=== PATIENT | female | born 1965 | race Caucasian/White ===

== ENCOUNTER 2019-10-27 07:53 | Outpatient (CLI) | payer OTHER, SELFPAY ==
--- NOTE | 2019-10-27 07:59 | ECG_ITS ---
Measurements Intervals [place] Rate: 69 P: 55 MI: 196 QRS: -30 QRSD: 95 T: 0 QT: 404 QTc: 436 Interpretive Statements SINUS RHYTHM DELAYED PRECORDIAL R/S TRANSITION BORDERLINE T WAVE ABNORMALITY- INFERIOR LEADS BORDERLINE ECG Electronically Signed On 10-27-2019 8:23:47 [employer] by Erickson Mcfadden D.O.
[2019-10-27 08:41] LABS: Blood Urea Nitrogen 9 mg/dL (7-17); Calcium 8.8 mg/dL (8.4-10.2); Carbon Dioxide 30 mmol/L (22-30); Chloride 99 mmol/L (98-107); Estimated Glomerular Filt Rate > 60; Glucose 107 mg/dL (65-105); Potassium 4.3 mmol/L (3.4-5.0); Sodium 141 mmol/L (137-145)
== END 2019-10-27 07:54 | disposition home or self-care (01) ==
PROVIDERS: Anesthesiology; PCP Internal Medicine; Visit Provider Obstetrics & Gynecology
DX: I10 Essential (primary) hypertension (principal)
CPT/HCPCS: 36415; 80048; 93005

== ENCOUNTER 2019-11-03 00:36 | Day surgery (SDC) | payer OTHER, SELFPAY ==
[2019-10-21 12:43] VITALS: BMI 31.7
--- NOTE | 2019-11-01 12:11 | HP_ITS ---
DATE OF SERVICE: 11/03/2019 Surgery is scheduled for November 03. HISTORY: The patient is 54 years old, G0, who came to us for consultation due to postmenopausal bleeding. She has been spotting most days since May of 2019 and her last period was in 2015. She has some cramping but no pain medication. She denies chest pain, shortness of breath, or dizziness and one of the nurse practitioners in our office attempted to do an endometrial biopsy in the office but was unsuccessful due to cervical stenosis. MEDICAL HISTORY: Hypertension and high cholesterol. MEDICATIONS: 1. Atorvastatin. 2. Hydrochlorothiazide. 3. Lisinopril. ALLERGIES: NO KNOWN DRUG ALLERGIES. SURGICAL HISTORY: Negative. SOCIAL HISTORY: Negative for tobacco or drug use. Occasionally, she drinks alcohol. OBSTETRICAL HISTORY: She has never been . GYNECOLOGICAL HISTORY: Negative for abnormal Pap or STD. FAMILY HISTORY: Negative for gynecologic malignancy. REVIEW OF SYSTEMS: Negative. PHYSICAL EXAMINATION: VITAL SIGNS: Her weight is 198, blood pressure 136/82. GENERAL: No apparent distress. HEART: Regular rate and rhythm. LUNGS: Clear to auscultation. ABDOMEN: Soft, nontender, nondistended. IMAGING: Pelvic ultrasound shows an endometrial stripe thickened at 13 mm. Overall maximum dimension of uterus 7.4 cm. Normal ovaries bilaterally. ASSESSMENT AND PLAN: Postmenopausal bleeding and failed attempt at endometrial biopsy in the office. She was offered repeat attempt of endometrial biopsy in the office by me that she declined and opted for D and C hysteroscopy in the OR instead and she did sign consent after the risks, benefits, complications, and alternatives were discussed. D I MT: Karina
[2019-11-03 12:41] VITALS: BP 138/93; PULSE 83; RESP 20; TEMP 36.6; O2SAT 100
[2019-11-03] MEDS: LACTATED RINGERS 1,000 ML 30 ML IV CONT (12:50)
--- NOTE | 2019-11-03 13:18 | WPDANESEPPF ---
Anes - Initial Pre Proc Eval Procedure: Operation Date: 11/03/19 14:30 Proposed Procedures p Hysteroscopy, Dilation and Curettage - Melanie Chan MD Date/Time: 11/03/19 13:18 Surgeon: Melanie Chan MD Pre Op Diagnosis: post menopausal bleeding Patient Data Age: 54 Gender: F Height: 1.63 m Weight: 88 kg Last Vital Signs Temp 36.6 C 11/03/19 12:41 Pulse 83 11/03/19 12:41 Resp 20 11/03/19 12:41 BP 138/93 H 11/03/19 12:41 Pulse Ox 100 11/03/19 12:41 Allergies Allergy/AdvReac Type Severity Reaction Status Date / Time No Known Allergies Allergy Unverified 11/03/19 12:42 Home Medications Medication Instructions Recorded Confirmed Type atorvastatin 10 mg PO HS 10/21/19 11/03/19 History hydrochlorothiazide 25 mg PO DAILY 10/21/19 11/03/19 History lisinopril 10 mg PO DAILY 10/21/19 11/03/19 History ECG: Date of Service: 10/27/19 Procedure(s): CA 12 lead EKG Accession Number(s): [id number] cc: ~ Measurements Intervals [place] Rate: 69 P: 55 ND: 196 QRS: -30 QRSD: 95 T: 0 QT: 404 QTc: 436 Interpretive Statements SINUS RHYTHM DELAYED PRECORDIAL R/S TRANSITION BORDERLINE T WAVE ABNORMALITY- INFERIOR LEADS BORDERLINE ECG Electronically Signed On 10-27-2019 8:23:47 FLUSH TE[employer] by Erickson Mcfadden D.O. Dictated By: Erickson Mcfadden DO 10/27/19 0838 Patient hx anesthesia problems: none Family hx anesthesia problems: none [facility] Past Medical History Medical History (Updated 11/03/19 @ 13:20 by Juan Francisco Gallardo MD) Abnormal uterine bleeding HTN (hypertension) Hypercholesterolemia Obesity Anes - Eval Final PreProcedure Day of Procedure 11/03/19 13:18 Patient weight: overweight Heart: regular rate and rhythm Lungs: clear to auscultation and normal air movement Airway: Mallampati scale class II Neurological: alert and oriented Last oral intake: >/= 8 hours ASA classification: II Emergent: no Anesthetic plan: proceed Anesthesia type and monitoring: general GIVS Informed Consent: The patient's anesthetic plan and its attendant risks and benefits were discussed with the patient/family/POA. Questions were solicited and answers provided to the satisfaction of the patient/family/POA.
--- NOTE | 2019-11-03 13:57 | WPDHPUPDATE1 ---
History and Physical Update Update Date/Time: 11/03/19 13:57 History and Physical has been reviewed, including an updated exam of the patient. There are NO changes in the patient's condition. Risks, benefits, and alternatives have been discussed and questions answered. Patient agrees to proceed with procedure.
[2019-11-03] MEDS: IBUPROFEN IV 800 MG/200 ML 800 MG/200 ML BAG 400 MG IVPB (14:34)
--- NOTE | 2019-11-03 15:01 | PM.OP ---
Procedure Note - Brief Procedure Note - Brief Date of procedure: 11/03/19 Pre-op diagnosis: post menopausal bleeding Post-op diagnosis: other (endometrial polyp) Procedure performed: D&C, hysteroscopy, endometrial polypectomy Anesthesia: MAC Surgeon: Melanie Chan MD Estimated blood loss (mL): 10 Drains: No Packing: No Pathology: yes Complications: No immediate complications Condition: stable Disposition: PACU Findings: large endometrial polyp with two smaller polypoid lesions, normal endometrial cavity after polypectomy
[2019-11-03 15:05] VITALS: BP 127/73; PULSE 68; RESP 20; O2SAT 95
[2019-11-03 15:35] VITALS: BP 136/84; PULSE 65; RESP 18; O2SAT 98
[2019-11-03 16:00] VITALS: BP 135/76; PULSE 67; RESP 18
--- NOTE | 2019-11-03 17:12 | OP_ITS ---
DATE OF PROCEDURE: 11/03/2019 PREOPERATIVE DIAGNOSIS: Postmenopausal bleeding. POSTOPERATIVE DIAGNOSIS: Postmenopausal bleeding and endometrial polyps. PROCEDURE PERFORMED: D and C, hysteroscopy, endometrial polypectomy using MyoSure. ANESTHESIA: Conscious sedation. ESTIMATED BLOOD LOSS: 10 mL. COMPLICATIONS: None. FINDINGS: Endometrial canal with 1 large polypoid lesion and 2 other smaller polypoid lesions. Otherwise normal endometrial cavity after the polyps removed with both tubal ostia identified. INDICATIONS: 54-year-old, G0, came to our office for consultation due to postmenopausal bleeding. She reported having spotting most days since May of 2019 and she had some cramping, but not enough to take any pain medication. One of the nurse practitioners in our office attempted to do an endometrial biopsy in the office, but was unsuccessful and she did have a thickened endometrial stripe on ultrasound, so she was recommended to proceed with D and C, hysteroscopy. She agreed and signed consent after the risks, benefits, complications, and alternatives were discussed. DESCRIPTION OF PROCEDURE: She was taken to the operating room where she was sedated and placed in the dorsal lithotomy position. A speculum was placed in the vagina and the anterior lip of the cervix was grasped with a single-tooth tenaculum. The cervix was dilated to allow passage of the hysteroscope, which revealed the polypoid lesions as described above so the MyoSure device was made ready and under direct hysteroscopic visualization, the polyps were removed in their entirety. The endometrial cavity looked normal with both tubal ostia identified at the end of the case. The hysteroscope was removed. The tenaculum was removed. The right tenaculum site was bleeding slightly, so pressure was held with a ring forcep until excellent hemostasis was visualized and then all instruments were removed from the vagina. She tolerated the procedure well. Sponge, lap, and instrument counts were correct x2 and she was taken to the recovery room in stable condition. D I MT: Karina
== END 2019-11-03 16:08 | disposition home or self-care (01) ==
PROVIDERS: Visit Provider Obstetrics & Gynecology
PROC: 0U5B8ZZ Destruction of Endometrium, Via Natural or Artificial Opening Endoscopic (ICD-10-PCS; CPT 58563; principal; 2019-11-03 14:30)
DX: N95.0 Postmenopausal bleeding (principal); N84.0 Polyp of corpus uteri; I10 Essential (primary) hypertension; E78.00 Pure hypercholesterolemia, unspecified; E66.9 Obesity, unspecified; Z68.33 Body mass index [BMI] 33.0-33.9, adult
CPT/HCPCS: 58558; 88304; 88305; A9270; J1100; J1741; J2250; J2405; J2704; J3010; J7030; J7120

== ENCOUNTER 2020-05-21 00:18 | Outpatient (CLI) | payer OTHER, SELFPAY ==
[2020-05-22 13:40] LABS: SARS-CoV-2 RNA PCR Negative
== END 2020-05-21 00:19 | disposition home or self-care (01) ==
LOC: ANHCOVIDDT 00:19
PROVIDERS: Visit Provider Internal Medicine Gastroenterology
DX: Z01.812 Encounter for preprocedural laboratory examination (principal); Z20.828 Contact with and (suspected) exposure to other viral communicable diseases
CPT/HCPCS: 87635; C9803; U0003

== ENCOUNTER 2020-05-24 00:53 | Day surgery (SDC) | payer OTHER, SELFPAY ==
[2020-03-16 09:02] VITALS: BMI 32.5
[2020-05-13 10:45] VITALS: BMI 31.8
[2020-05-24] MEDS: LACTATED RINGERS 1,000 ML 150 ML IV CONT (06:51)
[2020-05-24 06:53] VITALS: BP 130/86; PULSE 75; RESP 16; TEMP 36.4; O2SAT 97; BMI 32.5
--- NOTE | 2020-05-24 07:20 | P.HP_ITS ---
History of Present Illness History of Present Illness Consent: Risks, benefits, and alternatives have been discussed and questions answered. Patient agrees to proceed with procedure. Chief complaint: Neoplasm Screening Narrative: Jo Lizarraga is a 55 year old W female referred for screening colonoscopy. Patient a colonoscopy 6 years ago which time an adenomatous polyp was removed. No family history of colorectal cancer. Patient is asymptomatic. [facility], [facility] Past Medical History Medical History (Updated 05/24/20 @ 07:21 by Julian Childs MD) Abnormal uterine bleeding HTN (hypertension) Hypercholesterolemia Obesity Status post hysteroscopy Social History Social History Smoking status: Never smoker Alcohol intake: current Drinks per week: 3 Substance use: never Substance use type: does not use Living arrangements: alone Gender identity (if verbalized by the patient): Female Spiritual care concerns: No Meds Home Medications and Allergies Home Medications Medication Instructions Recorded Confirmed Type atorvastatin 10 mg PO HS 10/21/19 03/16/20 History hydrochlorothiazide 25 mg PO DAILY 10/21/19 03/16/20 History lisinopril 10 mg PO QAM 10/21/19 03/16/20 History Allergies Allergy/AdvReac Type Severity Reaction Status Date / Time No Known Allergies Allergy Unverified 05/24/20 06:46 Vital Signs Vital Signs - 24 hr 05/24/20 06:53 Temperature 36.4 C Pulse Rate 75 Respiratory Rate 16 Blood Pressure 130/86 Pulse Oximetry 97 Exam Const: Orientation/consciousness: patient oriented x3 Resp: Auscultation: clear to auscultation bilaterally Cardio: Rate: regular rate Rhythm: regular rhythm Heart sounds: no murmurs GI: GI Palp: Yes Soft to palpation, No Tenderness to palpation present (GI), Yes No hepatosplenomegaly present and No Palpable mass present Auscultation: normal bowel sounds Neuro: General: patient oriented x3 and no focal motor deficits Extrem: General: no pedal edema Assessment and Plan Additional Plan screening colonoscopy secondary history of colonic polyps
--- NOTE | 2020-05-24 07:47 | P.PNAN_ITS ---
Anes - Initial Pre Proc Eval Procedure: Operation Date: 05/24/20 08:00 Proposed Procedures p Screening Colonoscopy - Julian Childs MD Date/Time: 05/24/20 07:47 Surgeon: Julian Childs MD Pre Op Diagnosis: Neoplasm Screening Patient Data Age: 55 Gender: F Height: 5 ft 4 in Weight: 86 kg Last Vital Signs Temp 97.6 F 05/24/20 06:53 Pulse 75 05/24/20 06:53 Resp 16 05/24/20 06:53 BP 130/86 05/24/20 06:53 Pulse Ox 97 05/24/20 06:53 Allergies Allergy/AdvReac Type Severity Reaction Status Date / Time No Known Allergies Allergy Unverified 05/24/20 06:46 Home Medications Medication Instructions Recorded Confirmed Type atorvastatin 10 mg PO HS 10/21/19 03/16/20 History hydrochlorothiazide 25 mg PO DAILY 10/21/19 03/16/20 History lisinopril 10 mg PO QAM 10/21/19 03/16/20 History Patient hx anesthesia problems: none Family hx anesthesia problems: none [facility] Past Medical History Medical History (Updated 05/24/20 @ 07:21 by Julian Childs MD) Abnormal uterine bleeding HTN (hypertension) Hypercholesterolemia Obesity Status post hysteroscopy Social History Social History Smoking status: Never smoker Alcohol intake: current Drinks per week: 3 Substance use: never Substance use type: does not use Living arrangements: alone Gender identity (if verbalized by the patient): Female Spiritual care concerns: No Anes - Eval Final PreProcedure Day of Procedure 05/24/20 07:47 Patient weight: overweight Heart: regular rate and rhythm Lungs: clear to auscultation Airway: Mallampati scale class II Neurological: alert and oriented Last oral intake: >/= 8 hours ASA classification: III Emergent: no Anesthetic plan: proceed Anesthesia type and monitoring: general GIVS and standard monitoring Informed Consent: The patient's anesthetic plan and its attendant risks and benefits were discussed with the patient/family/POA. Questions were solicited and answers provided to the satisfaction of the patient/family/POA.
[2020-05-24] MEDS: SIMETHICONE ORAL SUSPENSION 20 MG/0.3 ML 30 ML BOTTLE 0.6 ML IRRIGATION (08:25)
[2020-05-24 08:37] VITALS: BP 101/65; PULSE 64; RESP 16; O2SAT 100
[2020-05-24 08:47] VITALS: BP 107/66; PULSE 63; RESP 16; O2SAT 100
[2020-05-24 08:57] VITALS: BP 108/68; PULSE 66; RESP 16; O2SAT 100
== END 2020-05-24 09:00 | disposition home or self-care (01) ==
PROVIDERS: Visit Provider Internal Medicine Gastroenterology
PROC: 0DJD8ZZ Inspection of Lower Intestinal Tract, Via Natural or Artificial Opening Endoscopic (ICD-10-PCS; CPT 45378; principal; 2020-05-24 08:00)
DX: Z12.11 Encounter for screening for malignant neoplasm of colon (principal); Z86.010 Personal history of colon polyps; I10 Essential (primary) hypertension; E78.5 Hyperlipidemia, unspecified; E66.9 Obesity, unspecified; Z68.32 Body mass index [BMI] 32.0-32.9, adult; Z79.899 Other long term (current) drug therapy
CPT/HCPCS: 45378; J2704; J7120

== ENCOUNTER → 2021-12-30 14:02 | Outpatient (CLI) | payer OTHER, SELFPAY ==
--- NOTE | ~2021-12-30 | MM_ITS ---
EXAMINATION: MM screening shelly BI w lev HISTORY: Screening mammogram TECHNIQUE: Craniocaudal and mediolateral oblique 3-D tomosynthesis images were obtained and synthetic 2-D images were generated. CAD analysis was submitted and interpreted. COMPARISON: 01/15/2017, 12/01/2015, 08/17/2014 bilateral screening mammogram examinations BREAST PARENCHYMAL COMPOSITION: The breasts are heterogeneously dense, which may obscure small masses . FINDINGS: Bilateral upper outer quadrant benign-appearing intramammary lymph nodes. There is no evide nce of suspicious mass, calcification, or architectural distortion to suggest malignancy in either br east. There has been no suspicious interval change. IMPRESSION: 1. No mammographic evidence of malignancy. 2. Recommend routine screening mammography in one year. BI-RADS Category 2: Benign finding(s). Reviewed, dictated and finalized at location A.
== END ==
PROVIDERS: PCP Obstetrics & Gynecology; Visit Provider Obstetrics & Gynecology
DX: Z12.31 Encounter for screening mammogram for malignant neoplasm of breast (principal)
CPT/HCPCS: 77063; 77067

== ENCOUNTER → 2022-01-27 12:09 | Outpatient (CLI) | payer OTHER, SELFPAY ==
--- NOTE | ~2022-01-27 | DEXA_ITS ---
Bone Density Report Name: ANALISA MIRANDA Age: 57 Sex: Female Ethnicity: White Date of : 1965 Indication: postmenopausal; screening for osteoporosis; Referring Provider: Lissette Kline Study: Bone densitometry was performed. Exam Date: January 27, 2022 Accession number: [id number] Bone Density: Region BMD T-score Z-score Classification AP Spine (L1-L4) 0.993 -0.5 0.9 Normal Femoral Neck (Left) 0.722 -1.1 0.1 Osteopenia Total Hip (Left) 0.933 -0.1 0.8 Normal Femoral Neck (Right) 0.740 -1.0 0.3 Normal Total Hip (Right) 0.919 -0.2 0.7 Normal Total Hip Mean 0.926 -0.2 0.8 Normal World Health Organization criteria for BMD impression classify patients as: Normal (T-score at or above -1.0), Osteopenia (T-score between -1.0 and -2.5), or Osteoporosis (T-score at or below -2.5). 10-year Fracture Risk(1): Major Osteoporotic Fracture 6.5% Hip Fracture 0.4% Reported Risk Factors: [place] (), Neck BMD=0.722, BMI=34.8 (1) FRAX(R) Version 3.08. Fracture probability calculated for an untreated patient. Fracture probability may be lower if the patient has received treatment. Clinical Information Provided by Patient: Patient maximum height was 63.75 Menopause Age: 46 No regular weight bearing exercise Drinks caffeinated beverages Onset of menses at age 14 Number of children 0 Impression: The patient has low bone mass, based on the Left Femoral Neck T-score. The patient has an estimated ten-year risk of hip fracture of 0.4% and an estimated ten-year risk of major fracture of 6.5%, based on the WHO FRAX algorithm. Discussion: BONE DENSITY IS LOW AT ONE OR MORE SKELETAL SITES. This patient's lowest T-score is low at one or more skeletal sites. It meets the World Health Organization's (WHO) criteria for ?low bone mass? (T-score between -1.0 and -2.5). The patient's 10-year risk of fracture as calculated by FRAX is less than the threshold where pharmacological therapy is recommended by the National Osteoporosis Foundation (NOF). However, all treatment decisions require clinical judgment and consideration of individual patient factors, including patient preferences, comorbidities, previous drug use, risk factors not captured in the FRAX model (e.g., frailty, falls, vitamin D deficiency, increased bone turnover, interval significant decline in bone density) and possible under or overestimation of fracture risk by FRAX. The patient should follow a healthful lifestyle (good nutrition with adequate calcium and vitamin D, and appropriate weight-bearing exercise). Follow-Up: Consider repeating this study in 2 to 3 years to reassess this patient's status, or sooner if there is some new clinical indication. Reported by: [facility] on 01/27/2022 12:21:00 PM. R
== END ==
PROVIDERS: Visit Provider Obstetrics & Gynecology
DX: M81.0 Age-related osteoporosis without current pathological fracture (principal); Z82.62 Family history of osteoporosis; M85.852 Other specified disorders of bone density and structure, left thigh
CPT/HCPCS: 77080

== ENCOUNTER 2022-09-05 19:40 | Emergency (ER) | payer OTHER, SELFPAY ==
--- NOTE | 2022-09-05 19:43 | ED.URI ---
HPI - URI/Sore Throat General Chief Complaint: Upper Respiratory Infection Stated Complaint: positive for covid Time Seen by Provider: 09/05/22 19:42 Source: patient Mode of arrival: ambulatory Limitations: no limitations History of Present Illness HPI Narrative: Ms. Lizarraga is a 47-year-old female patient presenting to clinic today with complaints of runny nose, congestion, slight headache, and low-grade temperature x2 days. She reports she tested positive for COVID at home. MD elicited complaint: sore throat and nasal congestion Related Data Home Medications Medication Instructions Recorded Confirmed atorvastatin 10 mg tablet 10 mg PO HS 10/21/19 09/05/22 hydrochlorothiazide 25 mg tablet 25 mg PO DAILY 10/21/19 09/05/22 lisinopril 10 mg tablet 10 mg PO QAM 10/21/19 09/05/22 Allergies Allergy/AdvReac Type Severity Reaction Status Date / Time No Known Allergies Allergy Unverified 09/05/22 19:46 Review of Systems Review of Systems: Pertinent positives per HPI. Patient denies any rash, visual changes, dizziness, cough, shortness of breath, chest pain, palpitations, nausea, vomiting, diarrhea, constipation, abdominal pain, or any urinary issues. [facility] Past Medical History Medical History Abnormal uterine bleeding HTN (hypertension) Hypercholesterolemia Obesity Status post hysteroscopy Social History Social History Smoking status: Never smoker Alcohol intake: current Drinks per week: 3 Substance use: never Substance use type: does not use Gender identity (if verbalized by the patient): Female Spiritual care concerns: No Comments At the time of my signature, I reviewed and agree with the nursing past medical, surgical, social, and family history. There is no relevant family history pertinent to the patient complaint. Exam Narrative: General: Well-developed, well nourished, in no apparent distress Head: Normocephalic, atraumatic Eyes: Pupils equally round and reactive to light bilaterally, EOM intact, sclera and conjunctive clear, no discharge, lids normal Ears: TMs intact and clear, ear canals clear, no drainage, grossly hearing normal. Nose: Nares patent, clear nasal discharge, no inflammation, no sinus tenderness. Mouth: Oral pharynx without lesions or masses, good dentition, MMM. Neck: Supple, trachea midline, no enlargement of anterior or posterior cervical nodes, no thyroid masses or goiter palpable. Cardio: Regular rate and rhythm, s1 and s2 normal, no murmur appreciated. Resp: Clear to auscultation bilaterally, no rhonchi, rales, wheezing or rubs Course Course Emergency Course: Portions of this record may have been created with voice recognition software. Level of Care: Express Care Visit Vital Signs Vital signs: Vital signs reviewed MDM - URI/Sore Throat MDM Narrative Medical decision making narrative: At the time of the patient is resting comfortably on the exam table. COVID testing in the clinic was positive. Prescription for molnupivira was sent to the pharmacy. Supportive measures were discussed with the patient she voiced understanding discharge instructions and agrees to treatment plan. Differential Diagnosis Differential diagnosis: Likely sinusitis, viral infection, influenza and pharyngitis Discharge Plan Discharge Clinical Impression: COVID-19 Patient Disposition: Home, Self-Care Condition: Stable Instructions: Antibiotic Form, COVID-19 (Coronavirus Disease 2019) (ED), How to Recover from COVID-19 at Home (ED) Additional Instructions: Take prescription medications only as prescribed-molnupiravir Increase fluids and stay well hydrated Tylenol/motrin for pain/fever Flonase and OTC antihistamines as directed Vicks vapor rub to open sinuses Sinus rinses for congestion Cepacol spray, cough drops, throat lozenges, warm
[2022-09-05 19:48] VITALS: BP 160/82; PULSE 94; RESP 16; TEMP 36.8; O2SAT 97
== END 2022-09-05 19:59 | disposition home or self-care (01) ==
PROVIDERS: Emergency Provider Nurse Practitioner Family
DX: U07.1 COVID-19 (principal); I10 Essential (primary) hypertension; E78.00 Pure hypercholesterolemia, unspecified; E66.9 Obesity, unspecified; Z68.32 Body mass index [BMI] 32.0-32.9, adult
CPT/HCPCS: 87426; 99213; C9803; G0463

== ENCOUNTER → 2023-06-15 14:00 | Outpatient (CLI) | payer OTHER, SELFPAY ==
--- NOTE | ~2023-06-15 | MM_ITS ---
EXAMINATION: MM screening shelly BI w lev HISTORY: Screening mammogram TECHNIQUE: Craniocaudal and mediolateral oblique 3-D tomosynthesis images were obtained and synthetic 2-D images were generated. CAD analysis was submitted and interpreted. COMPARISON: 12/30/2021, 01/15/2017, 12/01/2015, 08/17/2014 bilateral screening mammogram examinations BREAST PARENCHYMAL COMPOSITION: The breasts are heterogeneously dense, which may obscure small masses . FINDINGS: There is no evidence of suspicious mass, calcification, or architectural distortion to sugg est malignancy in either breast. There has been no suspicious interval change. IMPRESSION: 1. No mammographic evidence of malignancy. 2. Recommend routine screening mammography in one year. BI-RADS Category 1: Negative Reviewed, dictated and finalized at location B.
== END ==
PROVIDERS: Visit Provider Obstetrics & Gynecology
DX: Z12.31 Encounter for screening mammogram for malignant neoplasm of breast (principal)
CPT/HCPCS: 77063; 77067

== ENCOUNTER 2024-05-28 02:08 | Day surgery (SDC) | payer OTHER, SELFPAY ==
[2024-05-20 13:54] VITALS: BMI 34.3
--- NOTE | 2024-05-20 14:06 | PC.NURSE ---
Report to the Outpatient Waiting Room, entrance under the green pavilion located off [facility], at time _0600 on date _05/28/24 . Planned Procedure Time: _0730 .? Time changes happen often and if your time is changed the preop area will call you the afternoon before. - You and your visitor will be asked to self-screen and do not enter if you have any COVID symptoms. Please call surgeon if you need to reschedule. - A mask is optional within the hospital at this time. Patients may have clear liquids (water, carbonated beverages, clear teas, apple juice) until 3 hours prior to surgery with a maximum of 20 ounces. - No food from midnight until time of surgery and no smoking - Infants may have breast milk until 4 hours before surgery, formula 6 hours prior to surgery. - Children will be allowed to drink immediately following surgery.? If applicable, please bring a bottle or sippy cup to assist with drinking. Juice, water, soda, and popsicles are readily available.? For infants on formula, please bring formula the day of surgery.? Pacifiers are allowed. Take only the following medications with a SIP of water on the morning of surgery: __None DO NOT STOP ANY OF YOUR OTHER PRESCRIPTION MEDICATIONS PRIOR TO SURGERY EXCEPT THE FOLLOWING Medications to discontinue per physician __Vitamins and supplements 3 days prior Please no make-up, nail bahraini, hairspray, perfume, deodorant, or body powder the day of surgery.? No jewelry (including any body piercings) or valuables the day of surgery, leave them at home.? Please take a shower or bath the night before, or the morning of, surgery with an antibacterial soap.? Wear comfortable, loose fitting clothing.? Children are encouraged to wear pajamas. - Jewelry must be removed prior to entering the operating room.? Rings and piercings that are not removed may be cut off. - The hospital will not accept responsibility for valuables.? - Please leave all valuables, including medications, at home the day of surgery. If you are going home after surgery, a licensed compressed air pile driver operator must drive you home.? - NO public transportation without another adult if you receive anesthesia. - We recommend that an adult stay with you for 24 hours following discharge. - We also recommend that you do not drive, make important decision, drink alcoholic beverages, or take any drugs that were not prescribed by your health care provider for at least 24 hours after your discharge time. For Pediatric surgeries, we recommend two adults accompany the child home. Follow any additional instructions given to you from your surgeon. Telephone instructions given to _Jo Byers and asked if any additional questions and then verbalized understanding. Patient advised to call surgeon office or pre surgery nurse liaison [phone] if any additional questions.
[2024-05-28 06:27] VITALS: BP 143/88; PULSE 74; RESP 18; TEMP 36.4; O2SAT 98
[2024-05-28] MEDS: ACETAMINOPHEN 500 MG TABLET 1000 MG PO (06:30)
--- NOTE | 2024-05-28 06:48 | WPDANESEPPF ---
Anes - Initial Pre Proc Eval Procedure: Operation Date: 05/28/24 07:30 Proposed Procedures p Hysteroscopy with Biopsy of Endometrium and/or Polypectomy, Endocervical Curettage - Jose Daniel Mcghee MD Date/Time: 05/28/24 06:48 Surgeon: Jose Daniel Mcghee MD Pre Op Diagnosis: endometrial polyp Patient Data Age: 59 Gender: F Height: 1.63 m Weight: 91.45 kg Last Vital Signs O2 Del Method Room Air 05/20/24 14:05 Allergies Allergy/AdvReac Type Severity Reaction Status Date / Time No Known Allergies Allergy Verified 05/28/24 06:44 Home Medications Medication Instructions Recorded Confirmed Type hydrochlorothiazide 25 mg tablet 25 mg PO DAILY 10/21/19 05/28/24 History lisinopril 10 mg tablet 10 mg PO QAM 10/21/19 05/28/24 History calcium carb-mag [id number] 1 tablet PO DAILY 05/20/24 05/28/24 History tablet Patient hx anesthesia problems: none Family hx anesthesia problems: none Results Review: All pre-operative results and documents have been reviewed as part of the pre-operative evaluation. [facility] Past Medical History Medical History Abnormal uterine bleeding HTN (hypertension) Hypercholesterolemia Obesity Status post hysteroscopy Social History Social History Smoking status: Never smoker Alcohol intake: current Drinks per week: 3 Substance use: never Substance use type: does not use Living arrangements: alone Gender identity (if verbalized by the patient): Female Spiritual care concerns: No Anes - Eval Final PreProcedure Day of Procedure 05/28/24 06:48 Patient weight: obese Heart: regular rate and rhythm Lungs: clear to auscultation Airway: Mallampati scale class II Neurological: alert and oriented Last oral intake: >/= 8 hours ASA classification: III Emergent: no Anesthetic plan: proceed Anesthesia type and monitoring: general GIVS and standard monitoring Results Review: All pre-operative results and documents have been reviewed as part of the pre-operative evaluation. Informed Consent: The patient's anesthetic plan and its attendant risks and benefits were discussed with the patient/family/POA. Questions were solicited and answers provided to the satisfaction of the patient/family/POA.
[2024-05-28 07:09] LABS: Anion Gap 8 mmol/L (4-12); Blood Urea Nitrogen 12 mg/dL (7-17); Calcium 8.7 mg/dL (8.4-10.2); Carbon Dioxide 28 mmol/L (22-30); Chloride 101 mmol/L (98-107); Estimated CRCL calculation 92 ml/min; Estimated Glomerular Filt Rate > 60; Glucose 103 mg/dL (65-110); Potassium 3.6 mmol/L (3.4-5.0); Sodium 137 mmol/L (137-145)
--- NOTE | 2024-05-28 07:15 | WPDHPUPDATE1 ---
History and Physical Update Update Date/Time: 05/28/24 07:15 History and Physical has been reviewed, including an updated exam of the patient. There are NO changes in the patient's condition. Risks, benefits, and alternatives have been discussed and questions answered. Patient agrees to proceed with procedure.
--- NOTE | 2024-05-28 07:19 | PM.IMHP ---
H&P: HPI History of Present Illness Date/Time: 05/28/24 07:19 Chief Complaint: postmenopausal bleeding Narrative: this patient is a 59-year-old female with postmenopausal bleeding. Evaluation revealed endocervical polyp. We agreed to perform hysteroscopy D&C, possible polypectomy, with endocervical curettage The patient understands the details of the procedure. The procedure has been explained in detail. She understands the risks. She understands that injuries may occur that result in hospitalization, more surgery, and severe illness. She understands risk of hemorrhage and infection. She denies any chest pain or shortness of breath. She denies any nausea, vomiting, fever, chills. Review of Systems Review of Systems: All systems reviewed & are unremarkable except as noted in HPI and below Constitutional: Constitutional: Denies chills, Denies fatigue, Denies fever(s) and Denies weakness Eyes: Eyes: Denies blurry vision, Denies change in vision, Denies loss of peripheral vision, Denies loss of vision, Denies other visual disturbances and Denies eye pain ENT: Denies vertigo, Denies dizziness, Denies hearing loss, Denies mouth pain, Denies nasal obstruction, Denies neck mass and Denies neck pain Cardiovascular: Cardiovascular: Denies chest pain, Denies diaphoresis, Denies syncope, Denies leg edema and Denies dyspnea Respiratory: Respiratory: Denies chest congestion, Denies cough, Denies hemoptysis, Denies dyspnea and Denies wheezing Gastrointestinal: Gastrointestinal: Denies abdominal pain, Denies constipation, Denies diarrhea, Denies nausea and Denies vomiting Genitourinary: Genitourinary: Denies hematuria, Denies change in libido, Denies nocturia, Denies genital lesions, Denies flank pain and Denies urinary urgency Musculoskeletal: Musculoskeletal: Denies abnormal gait, Denies back pain, Denies myalgias, Denies arthralgias, Denies joint swelling, Denies muscle weakness and Denies neck pain Integumentary/Breasts: Skin/Breast: Denies swelling, Denies breast pain, Denies breast mass, Denies dry skin, Denies nipple discharge, Denies unusual bruising and Denies jaundice Neurologic: Denies Neuro-related abnormal movements, Denies Abnormal speech present, Denies abnormal gait, Denies behavioral changes, Denies confusion, Denies vertigo, Denies dizziness, Denies syncope, Denies loss of vision, Denies memory loss, Denies convulsions and Denies weakness Psychiatric: Psychiatric: Denies abnormal sleep pattern, Denies behavioral changes, Denies change in libido, Denies confusion, Denies depression, Denies anhedonia and Denies memory loss Endocrine: Endocrine: Reports no additional endocrine complaints, Denies change in libido and Denies fatigue Hematologic/Lymphatic: Hematologic/Lymphatic: Reports no additional hematologic/lymphatic complaints Allergic/Immunologic: Allergic/Immunologic: Reports no additional allergic/immunologic complaints and Denies wheezing PMFSH Past Medical History Medical History Abnormal uterine bleeding HTN (hypertension) Hypercholesterolemia Obesity Status post hysteroscopy Social History Social History Smoking status: Never smoker Alcohol intake: current Drinks per week: 3 Substance use: never Substance use type: does not use Living arrangements: alone Gender identity (if verbalized by the patient): Female Spiritual care concerns: No Meds Home Medications and Allergies Home Medications Medication Instructions Recorded Confirmed Type hydrochlorothiazide 25 mg tablet 25 mg PO DAILY 10/21/19 05/28/24 History lisinopril 10 mg tablet 10 mg PO QA 10/21/19 05/28/24 History calcium carb-mag [id number] 1 tablet PO DAILY 05/20/24 05/28/24 History tablet Allergies Allergy/AdvReac Type Severity Reaction Status Date / Time No Known Allergies Allergy Verified
[2024-05-28 08:00] VITALS: BP 145/73; PULSE 67; RESP 14; O2SAT 98
[2024-05-28] MEDS: LACTATED RINGERS 1,000 ML 30 ML IV CONT (08:00)
--- NOTE | 2024-05-28 08:24 | W.PM.PROC2 ---
Procedure Note - Detailed Date of Procedure 05/28/24 Pre-op Diagnosis endometrial polyp Post-op Diagnosis Same Procedure Performed Hysteroscopy D&C Surgeon Jose Daniel Mcghee MD Anesthesia MAC Indications abnormal uterine bleeding Findings One polyp was within the endocervical canal. A 2nd polyp was on the uterine fundus/ cornua on the right side. Normal vulva, vagina, cervix. Description of Procedure the patient was taken the operating room. She was prepped and draped in the dorsal lithotomy position after induction of mac anesthesia. A speculum was placed in the vagina. The cervix was grasped with a tenaculum. The cervix was dilated about 1 cm. The hysteroscope was inserted. The intrauterine cavity and endocervix were evaluated. Hysteroscope was withdrawn. A medium-size curette was used to curettage all the surfaces were within the endometrial cavity. the sample was collected on Telfa and sent to pathology. The hysteroscope was reinserted and the above findings were noted. rotational blade was then used to remove 2 polyps. One polyp was within the endocervical canal. The other polyp emanated from the right uterine cornu/fundus. Patient tolerated the procedure well. The speculum and tenaculum were removed. She was taken recovery room in stable condition. Sponge lap and needle counts were correct x2. Estimated Blood Loss 40 Drains No Packing No Pathology Yes Complications No immediate complications Condition Stable Disposition PACU
[2024-05-28 08:30] VITALS: BP 136/80; PULSE 57; RESP 16; O2SAT 97
[2024-05-28] MEDS: KETOROLAC 30 MG/ML VIAL (*BKC) IV PUSH (08:40)
[2024-05-28 09:00] VITALS: BP 138/77; PULSE 64; RESP 16
== END 2024-05-28 09:10 | disposition home or self-care (01) ==
PROVIDERS: Visit Provider Obstetrics & Gynecology
PROC: 0U5B8ZZ Destruction of Endometrium, Via Natural or Artificial Opening Endoscopic (ICD-10-PCS; CPT 58563; principal; 2024-05-28 07:30)
DX: N84.0 Polyp of corpus uteri (principal); I10 Essential (primary) hypertension; E78.00 Pure hypercholesterolemia, unspecified; E66.9 Obesity, unspecified; Z68.34 Body mass index [BMI] 34.0-34.9, adult; Z98.890 Other specified postprocedural states
CPT/HCPCS: 58558; 36415; 80048; 88305; A9270; J1100; J1885; J2250; J2405; J2704; J3010; J7120

== ENCOUNTER 2024-06-18 14:18 | Outpatient (CLI) | payer OTHER, SELFPAY ==
--- NOTE | ~2024-06-18 | MM_ITS ---
EXAMINATION: MM screening shelly BI w lev HISTORY: Screening TECHNIQUE: Craniocaudal and mediolateral oblique 3-D tomosynthesis images were obtained and synthetic 2-D images were generated. CAD analysis was submitted and interpreted. COMPARISON: No prior mammogram is available for comparison at this institution. BREAST PARENCHYMAL COMPOSITION: Dense: The breasts are heterogeneously dense, which may obscure small masses FINDINGS: There are focal asymmetries of the right breast laterally on CC view and posteriorly and in feriorly on the MLO view. The left breast is stable without evidence for malignancy. IMPRESSION: 1. Right breast asymmetries. 2. Additional mammographic views and possible breast ultrasound are recommended. BI-RADS Category 0: Incomplete: Needs additional imaging evaluation. Reviewed, dictated and finalized at location B. IMPRESSION: 1. Right breast asymmetries. 2. Additional mammographic views and possible breast ultrasound are recommended . BI-RADS Category 0: Incomplete: Needs additional imaging evaluation.
== END 2024-06-18 14:19 | disposition home or self-care (01) ==
LOC: MICIMG 14:20
PROVIDERS: Visit Provider Nurse Practitioner
DX: Z12.31 Encounter for screening mammogram for malignant neoplasm of breast (principal); N64.89 Other specified disorders of breast
CPT/HCPCS: 77063; 77067

== ENCOUNTER 2024-08-14 09:19 | Outpatient (CLI) | payer OTHER, SELFPAY ==
--- NOTE | ~2024-08-14 | MM_ITS ---
EXAMINATION: MM diagnostic shelly RT w lev HISTORY: Right breast asymmetry TECHNIQUE: Additional 3-D tomosynthesis images of the right breast were performed and synthetic 2-D i mages were generated. CAD analysis was submitted and interpreted. COMPARISON: 06/18/2024, 06/15/2023, 12/30/2021, 01/10/2017 BREAST PARENCHYMAL COMPOSITION:Dense: The breasts are heterogeneously dense, which may obscure small masses. FINDINGS: Area of asymmetry effaces on compression. No suspicious lesion or distortion seen. Parenchy mal pattern is relatively stable dating back to prior exams. No suspicious marrow calcification. IMPRESSION: No mammographic evidence for malignancy. BI-RADS Category 1: Negative Reviewed, dictated and finalized at location . [employer]
== END 2024-08-14 09:20 | disposition home or self-care (01) ==
PROVIDERS: Visit Provider Obstetrics & Gynecology
DX: R92.8 Other abnormal and inconclusive findings on diagnostic imaging of breast (principal)
CPT/HCPCS: 77061; 77065; G0279

== ENCOUNTER 2024-12-26 07:21 | Outpatient (CLI) | payer OTHER, SELFPAY ==
--- NOTE | ~2024-12-26 | DEXA_ITS ---
Bone Density Report Name: ANALISA MIRANDA Age: 59 Sex: Female Ethnicity: White Date of : 1965 Indication: postmenopausal; screening for osteoporosis; height loss; Referring Provider: JOSÉ, GINNY Coburn Study: Bone densitometry was performed. Exam Date: December 26, 2024 Accession number: [id number] Bone Density: Region BMD T-score Z-score Classification AP Spine(L1-L4) 0.991 -0.5 1.0 Normal Femoral Neck (Left) 0.738 -1.0 0.4 Normal Total Hip (Left) 0.934 -0.1 1.0 Normal Femoral Neck (Right) 0.739 -1.0 0.4 Normal Total Hip (Right) 0.965 0.2 1.2 Normal Total Hip Mean 0.950 0.1 1.1 Normal World Health Organization criteria for BMD impression classify patients as: Normal (T-score at or above -1.0), Osteopenia (T-score between -1.0 and -2.5), or Osteoporosis (T-score at or below -2.5). 10-year Fracture Risk: FRAX not reported because: All T-scores for Spine Total, Hip Total, Femoral Neck at or above -1.0 Clinical Information Provided by Patient: Has used the following medications: Vitamin D, Calcium Patient maximum height was 64 Menopause Age: 48 No regular weight bearing exercise Drinks caffeinated beverages Onset of menses at age 13 Number of children 0 Impression: The patient has normal bone mass. Discussion: BONE DENSITY IS ABOVE THE MINIMUM DESIRABLE LEVEL AT ALL SKELETAL SITES TESTED. This patient?s bone mineral density is above the minimum desirable level (T-score -1.0 or better) at all sites measured. The patient should follow a healthful lifestyle (good nutrition with adequate calcium and vitamin D, and appropriate weight-bearing exercise). Follow-Up: Consider repeating this study in 5 years or sooner if there is some new clinical indication. Reported by: DURGA on 12/26/2024 8:06:00 AM. Reviewed, dictated and finalized at location AAdan PORTER
--- OUTSIDE RECORDS SUMMARY | 2024-12-26 07:41 | XMS_ITS | Data Portability ---
Author Organization [facility] Address [address] [place] [address] Care Team Providers Care Parquetry Layer Name Role Phone NAYELI MOCTEZUMA Primary Care Provider Assessment Encounter Date Assessment Date Assessment LastModified by Organization Details LastModified Time 04/16/2023 04/16/2023 Discussed US results, possible polyp, septate uterus. EMB done. will contact with results. may need HSC polypectomy if bleeding continues. WWE due March 2024 [email or web address] Not available 04/23/2023 09:27:40 04/07/2024 04/07/2024 Annual gynecological exam performed. Patient will come back in a year unless there are new symptoms. Not available 04/07/2024 09:10:04 Plan of Treatment Reminders Order Date Submit Date Provider Last Modified By Organization Details Last Modified Time Details Appointments None recorded. Lab None recorded. Referral None recorded. Procedures hysteroscop y, surgical; with biopsy of endometrium and/or polypectomy (PROC) 2023 024 [facility], [facility], [address], 4 09:28:48 curettage, endocervica l (PROC) 2023 024 [facility]830 [facility], [address] [place] [address], [address], 4 09:50:48 Surgeries None recorded. Imaging US, pelvis 2023 [address], [address], [place], [address], 4 22:01:51 US, transvagina l 2023 [address], [address], [place], [address], 4 22:01:51 US, pelvis, complete 2023 024 [facility], [address], [place], [address], 5 05:01:23 MAMMO, screening, digital, bilateral 2023 [facility], [address], [place], [address], 4 17:02:59 DEXA, axial skeleton + vertebral fracture assessment 2023 024 [facility], [address], [place], [address], 5 05:01:23 Medication Orders None recorded. Patient TargetsNo targets recorded. Patient InstructionsNo instructions recorded. Reason for Referral None Reported. Results Created Date Observation Date Name Description Value Unit Range Abnormal Flag Note LastModifiedBy Organization Detail LastModifiedTime 04/16/2004/16/2023 SURGI JANELL PATHO LOGY surgical pathology SEE RESULT S BELOW CASE REPOR T: Surgi janell Patho logy Repor t Case: [id number] Autho riale g Provi brittney: Lissette Willingham MD Colle cted: 04/16 1640 Order ing Locat ion: [place] Patho logy Recei florentino: 04/176 Patho logis t: Marty Alvarez MD Speci men: Endom etriu m, EMB FINAL DIAGN OSIS: Endom etriu m, biops y: -Supe rfici al fragm ents of weakl y proli ferat sergio endom etriu m. -Nega tive for hyper plasi a and malig katia . Elect lily pryor by Marty Alvarez MD on 023 at 10:15 AM ----- ----- ----- ----- ----- ----- ----- ----- ----- ----- ----- ----- ----- ----- ----- ----- ----- ---- COMME NT: Multi ple histo logic level s exami sailaja. CLINI JANELL INFOR MATIO N: n95.0 MICRO SCOPI C DESCR IPTIO N: A micro scopi c exami natio n was perfo rmed. GROSS DESCR IPTIO N: A. Endom etriu m. The speci men is label ed with the patie nt's name, rachael herrera cs and EMB . Recei florentino in forma mekhi is a 2.0 x 2.0 x 0.2 cm aggre gate of bella-b jeremy tissu e mixed with blood clot. The entir e speci men is submi tted in one casse tte. Gross ed by Lawrence Hurtado Not Available [facility] (Lab) [address] [facility], [place], [address], 04/18/2023 11:18:21 04/07/20 24 04/07/2024 IMAGE GUIDE D PAP AND HPV REGAR DLESS image guided Pap, HPV regardless of Pap result SEE RESULT S BELOW CASE REPOR T: Cytol ogy Gynec ologi janell Repor t Case: [id number] Autho dallas soliz Provi brittney: Sheree Iqbal, BRISEIDA Colle cted: 04/07 0948 Order ing Locat ion: [place] Patho logy Recei florentino: 04/08 0720 First Scree n: Steven bey, Michelle , [place] Speci men: Scree stefan Pap - Image d, Cervi x STATE MENT OF ADEQU ACY: Satis facto ry for evalu ation Trans forma tion zone compo nent prese nt ----- ----- ----- ----- ----- ----- ----- ----- ----- ----- ----- ----- ----- ----- ----- ----- ----- ---- FINAL DIAGN OSIS: Negat sergio for Intra epith elial Jeferson melgar or Sumeet montalvo (NIL) . Elect lily pryor by Michelle Schaffer CT on 024 at 12:21 PM ----- ----- ----- ----- ----- ----- ----- ----- ----- ----- ----- ----- ----- ----- ----- ----- ----- ---- HPV RESUL TS: HPV mRNA E6/E7 : No HPV mRNA Detec tea NOTE: This high risk HPV mRNA assay detec ts fourt een high- risk HPV types (16, 18, 31, 33, 35, 39, 45, 51, 52, 56, 58, 59, 66, 68) witho ut diffe renti ation . COMME NT: This speci men was revie wed by a Cytot echno logis t and/o r Patho logis t (as indic ated in this repor t) after evalu ation using the Thinp rep Imagi ng Syste m. CLINI JANELL INFOR MATIO N: Menst rual Statu s: LMP (if appli cable ): Clini janell Histo ry/Pr eviou s Pap: Type of Neopl derik (if appli cable ): Signi yoli t Clini janell Findi ngs: Other Histo ry: Hormo ramsey (if appli cable ): PAP EDUCA SOM L NOTE: The Pap Test is a scree stefan test with an inher ent false negat sergio rate. Liqui d-bas ed sampl ing may decre ase, but will not elimi tian, false negat sergio resul ts. A negat sergio resul t does not precl ude the prese nce and/o r devel opmen t of disea se, since the prese nce of abnor mal cells in the sampl e depen ds on the locat ion of the lesio n and sampl ing techn ique. Ranjith nued regul ar scree stefan is the best metho d of cance r preve ntion . If repor tea cytol ogic findi ng do not corre late with physi janell and/o r histo rical findi ngs, furth er inves tigat ion is recom pat d, as clini yvrose izquierdo nted. Not Available [facility] (Lab) [address], [place], [address], 04/12/2024 13:26:03 04/10/20 23 04/10/2023 US, pelvi s No observ ation record ed. [facility] [address] [facility] [address], [place], [address], 04/10/2023 11:01:31 04/10/20 23 04/10/2023 US, trans vagin al No observ ation record ed. [facility] [address], [place], [address], 04/10/2023 11:01:47 04/10/20 23 04/10/2023 US, pelvi s No observ ation record ed. FRANDY [facility] [address] [place] [address], [place], [address], 04/23/2023 22:04:05 06/15/20 23 06/15/2023 MAMMO , scree stefan, bilat eral No observ ation record ed. [facility] [address], [place], [address], 06/23/2023 10:11:19 04/08/20 24 04/08/2024 US, pelvi s No observ ation record ed. [email or web address] [place] [address], [place], [address], 04/08/2024 12:44:54 04/08/20 24 04/08/2024 US, trans vagin al No observ ation record ed. [email or web address] [place] [address], [place], [address], 04/08/2024 12:45:07 04/08/20 24 04/08/2024 US, pelvi s No observ ation record ed. lino [address] [facility], [place], [address], 04/14/2024 08:42:09 06/18/20 24 06/18/2024 MAMMO , scree stefan, digit al, bilat eral No observ ation record ed. [facility] [address], [place], [address], 06/23/2024 22:47:35 06/23/20 24 06/18/2024 MAMMO , scree stefan, digit al, bilat eral No observ ation record ed. [facility] [address], [place], [address], 06/23/2024 22:47:35 08/14/20 24 08/14/2024 MAMMO , diagn ostic , digit al, unila teral No observ ation record ed. [facility] [address], [place], [address], 08/14/2024 20:12:00 Result Notes None recorded. Problems Name Problem SNOMED Code Status Onset Date Resolution Date Notes Provider Name and Address Organization Details Recorded Time SNOMED CT Concept Completed 201811/07/2021 Encntr for operator supply exam (general ) (routine ) w/o abn findings ;Recorde d Elsewher e: No Locat ion: Amiradha lloyd [facility] S ource: [employer] patrick: N Practi ce ID: [id number] Nathen lable Time: 08:30:00 AM Lissette Kline MD [address], [place], [address], [facility] 2 09:43:06 Postmeno pausal bleeding [id number] Completed 201811/07/2021 Postmeno pausal bleeding ;Recorde d Elsewher e: No Locat ion: Amibeth lloyd [facility] S ource: [employer] patrick: N Practi ce ID: [id number] Nathen lable Time: 08:30:00 AM Lissette Kline MD [address], [place], [address], [facility] 2 09:42:55 Screenin g for malignan t neoplasm of rectum Completed 201111/07/2021 Screenin g for malignan t neoplasm s of the rectum;R ecorded Elsewher e: No Locat ion: [facility] S ource: [employer] patrick: N Practi ce ID: [id number] Nathen lable Time: 03:15:00 PM Lissette Kline MD [address], [place], [address], [facility] 2 09:43:01 Dysfunct ional uterine bleeding Completed 201211/07/2021 Other disorder s of menstrua tion and other abnormal bleeding from female genital tract;Re corded Elsewher e: No Locat ion: [facility] S ource: [employer] patrick: N Practi ce ID: 0001 Nathen lable Time: 08:45:00 AM Lissette Kline MD [address], [place], [address], [facility] 2 09:42:47 Screenin g for malignan t neoplasm of cervix Completed 201111/07/2021 Screenin g for malignan t neoplasm s of the cervix;R ecorded Elsewher e: No Locat ion: Amiradha desai [facility] S ource: [employer] patrick: N Heladioti ce ID: 0001 Nathen lable Time: 03:15:00 PM Lissette Kline MD [address], [place], [address], [facility] 2 09:42:59 Pregnanc y test negative [id number] Completed 201211/07/2021 Pregnanc y examinat ion or test, negative result;R ecorded Elsewher e: No [facility] S ource: [employer] patrick: N Heladioti ce ID: 0001 Nathen lable Time: 11:00:00 AM Lissette Kline MD [address], [place], [address], [facility] 2 09:42:57 Dysmenor mayi [id number] Completed 201211/07/2021 Dysmenor mayi;Rec orded Elsewher e: No [facility]: [employer] patrick: N Erlinda ce ID: 0001 Nathen lable Time: 03:30:00 PM Lissette Kline MD [address], [place], [address], [facility] 2 09:42:50 Cyst of ovary 15006172 Completed 201211/07/2021 Other and unspecif ied ovarian cyst;Rec orded Elsewher e: No Locat ion: [facility] S ource: [employer] patrick: N Heladioti ce ID: 0001 Nathen lable Time: 10:30:00 AM Lissette Kline MD [address], [place], [address], [facility] [address] 09:42[address] Concept Completed 201611/07/2021 Encntr for general adult medical exam w/o abnormal findings ;Recorde d Elsewher e: No Locat ion: [facility] S ource: [employer] patrick: N Practi ce ID: 0001 Nathen lable Time: 10:30:00 AM Lissette Kline MD [address], [place], [address], [facility] 2 09:43:03 Adult health examinat ion Completed 201311/07/2021 Routine Medical Exam;Rec orded Elsewher e: No Locat ion: Ajit e [facility] S ource: [employer] patrick: N Practi ce ID: 0001 Nathen lable Time: 08:30:00 AM Lissette Kline MD [address], [place], [address], [facility] 2 09:42:43 Speciali zed medical examinat ion Completed 201111/07/2021 Gynecolo gical Examinat ion;Timo rded Elsewher e: No Locat ion: [facility] S ource: [employer] patrick: N Practi ce ID: 0001 Nathen lable Time: 03:15:00 PM Lissette Kline MD [address], [place], [address], [facility] 2 09:43:08 Polyp of corpus uteri [id number] Completed 201911/07/2021 Polyp of corpus uteri;Pr actice ID: [id number] Lissette Kline MD [address], [place], [address], [facility] 2 09:42:52 Essentia l hyperten amanuel 36704438 Active 2021 Lissette Kline MD [address], [place], [address], [facility] 2 09:43:15 Osteopen ia 397633760 Active 2021 Lissette Kline MD [address], [place], [address], [facility] 09:36:54 Problem Notes None recorded. Procedures Surgical History Date Name Laterality Status Provider Name and Address Organization Details Recorded Time 04/07/20 24 Date of Last Pap Smear completed Michelle Naranjo [facility] 04/12/2024 09:16:56 06/15/20 23 Date of Last Mammogram completed Michelle Naranjo [facility] 04/12/2024 09:18:55 04/16/20 23 Endometrial Biopsy completed Lissette Kline MD [address], [place], [address], [facility] 04/23/2023 09:17:32 04/16/20 23 endometrial biopsy completed Michelle Naranjo [facility] 04/12/2024 09:23:41 01/28/20 22 Most Recent Bone Density completed Jessica [facility] 03/20/2023 16:01:49 09/10/19 22 Date of Last Colonoscopy completed Michelle Naranjo [facility] 04/12/2024 09:21:17 09/10/19 22 Colonoscopy completed Shell Rangel [facility] 04/07/2024 09:14:41 11/03/19 20 hysteroscopy completed Jessica Escalante [facility] 11/07/2021 08:59:42 09/10/19 19 Colonoscopy completed Michelle Naranjo [facility] 04/12/2024 09:23:17 02/09/20 18 completed Shell Rangel [facility] 04/07/2024 09:12:02 10/17/19 13 endometrial biopsy completed Michelle Naranjo [facility] 04/12/2024 09:23:47 09/10/19 13 Colonoscopy completed Michelle Naranjo [facility] 04/12/2024 09:23:20 09/10/18 81 extraction of wisdom tooth completed Michelle Naranjo [facility] 04/12/2024 10:32:49 Imaging Results Imaging Date Name Status LastModified by Organization Details LastModified Time 04/10/2023 US, pelvis completed geno Mcclellan [address], [place], [address], 04/10/2023 11:01:31 04/10/2023 US, transvaginal completed geno Vidal e [address], [place], [address], 04/10/2023 11:01:47 04/10/2023 US, pelvis completed FRANDY Liss[address] [place] [address], [place], [address], 04/23/2023 22:04:05 06/15/2023 MAMMO, screening, bilateral completed [facility]Y [facility] [address], [place], [address], 06/23/2023 10:11:19 04/08/2024 US, pelvis completed sheila Mcclellan [address], [place], [address], 04/08/2024 12:44:54 04/08/2024 US, transvaginal completed [email or web address] Vidal e [address], [place], [address], 04/08/2024 12:45:07 04/08/2024 US, pelvis completed llamay Liss[address], [place], [address], 04/14/2024 08:42:09 06/18/2024 MAMMO, screening, digital, bilateral completed FR[facility]Y [facility] [address], [place], [address], 06/23/2024 22:47:35 06/18/2024 MAMMO, screening, digital, bilateral completed [facility] [address], [place], [address], 06/23/2024 22:47:35 08/14/2024 MAMMO, diagnostic, digital, unilateral completed [facility] [address], [place], [address], 08/14/2024 20:12:00 Procedure Notes None recorded. Medical Equipment None Reported. Allergies No known drug allergies Medications Name Sig Start Date Stop Date Status Note LastModified by Organization Details LastModified Time atorvasta tin 10 mg tablet TAKE 1 TABLET BY MOUTH EVERY DAY active Not Available Not Available No t Available Zithromax Z-Gume 250 mg tablet take 2 tablet (500MG) by oral route every day for 1 day then 1 tablet (250 mg) by oral route once daily for 4 days 10/06 completed Prescrib ed Elsewher e: No Locat ion: [facility] odify By: cmedical Encount er DateTime : 10/02/19 13 08:45:54 AM Not Available Not Available Not Available lisinopri l 10 mg tablet TAKE 1 TABLET BY MOUTH EVERY DAY FOR BLOOD PRESSURE active Not Available Not Available No t Available hydrochlo rothiazid e 12.5 mg capsule take 2 capsule by oral route every day 11/07 completed Prescrib ed Elsewher e: Yes Loca tion: [facility] odify By: lbillhar tz Encou nter DateTime : 02/20/20 12 07:25:14 PM Not Available Not Available Not Available hydrochlo rothiazid e 25 mg tablet TAKE 1 TABLET BY MOUTH EVERY DAY IN THE MORNING active Not Available Not Available No t Available lisinopri l 2.5 mg tablet take 1 tablet by oral route every day 11/07 completed Prescrib ed Elsewher e: Yes Loca tion: [facility] odify By: lbillhar tz Encou nter DateTime : 02/20/20 12 07:25:14 PM Not Available Not Available Not Available Vitamins and Minerals tablet 09/24 completed Prescrib ed Elsewher e: Yes Loca tion: [facility] odify By: tuyet dixon DateTime : 02/21/20 12 03:15:00 PM Not Available Not Available Not Available Fish Oil 100 mg-160 mg-1,000 mg capsule 11/16 completed Prescrib ed Elsewher e: Yes Loca tion: [facility] odify By: jada Desai ncounter DateTime : 02/21/20 12 03:15:00 PM Not Available Not Available Not Available Caltrate 600 plus D 11/16 completed Prescrib ed Elsewher e: Yes Loca tion: [facility] odify By: jada Desai ncounter DateTime : 02/21/20 12 03:15:00 PM Not Available Not Available Not Available Lagevrio 200 mg capsule (EUA) TAKE 4 CAPSULES BY MOUTH EVERY 12 HOURS FOR 5 DAYS 04/16 completed Not Available Not Available Not Available Vitals Date Recorded Body height Body mass index (BMI) Body weight Systolic blood pressure Diastolic blood pressure Provider Name and Address Organization Details Last Updated DateTime 04/16/2023 161.29 cm 34 kg/m2 47972.51 g 130 mm[Hg] 82 mm[Hg] Jessica Escalante [facility] 3 17:00:21 Date Recorded Body height Body mass index (BMI) Body weight Systolic blood pressure Diastolic blood pressure Provider Name and Address Organization Details Last Updated DateTime 04/07/2024 161.29 cm 35.7 kg/m2 67543.44 g 129 mm[Hg] 82 mm[Hg] Shell Rangel [facility] 4 09:11:48 Date Recorded Body height Body mass index (BMI) Body weight Systolic blood pressure Diastolic blood pressure Provider Name and Address Organization Details Last Updated DateTime 04/12/2024 161.29 cm 35.9 kg/m2 63651.03 g 126 mm[Hg] 86 mm[Hg] Michelle Naranjo [facility] 4 10:31:46 Date Recorded Body height Body mass index (BMI) Body weight Systolic blood pressure Diastolic blood pressure Provider Name and Address Organization Details Last Updated DateTime 06/05/2024 161.29 cm 35 kg/m2 32803.07 g 114 mm[Hg] 69 mm[Hg] Cindy Sandeep [facility] 4 14:27:46 Social History Question Answer Notes LastModified by Organizat ion Details LastModified Time Tobacco Smoking Status Never Smoker Jessica Emilianotyree smith, [facility] 11/07/2021 09:00:55 Do You Have An Advance Directive? No Information not available 04/07/2024 What Is Your Level Of Alcohol Consumption? Occasional Information not available 04/07/2024 How Many Years Have You Consumed Alcohol? 30 Information not available 04/07/2024 Are You Blind Or Do You Have Difficulty Seeing? No Information not available 04/07/2024 What Is Your Level Of Caffeine Consumption? Occasional Information not available 04/07/2024 How Much Tobacco Do You Chew? None Information not available 04/07/2024 In The 14 Days Before Symptom Onset, Have You Had Close Contact With A Laboratory-confir med COVID-19 While That Case Was Ill? No Information not available 04/07/2024 In The 14 Days Before Symptom Onset, Have You Had Close Contact With A Person Who Is Under Investigation For COVID-19 While That Person Was Ill? No Information not available 04/07/2024 Have You Been To An Area Known To Be High Risk For COVID-19? No Information not available 04/07/2024 Are You Deaf Or Do You Have Serious Difficulty Hearing? No Information not available 04/07/2024 What Type Of Diet Are You Following? REGULAR Information not available 04/07/2024 What Is The Highest Grade Or Level Of School You Have Completed Or The Highest Degree You Have Received? 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 No Information not available 04/07/2024 Do You Use Protection During Sex? Always Information not available 04/07/2024 Do You Use Your Seat Belt Or Car Seat Routinely? Yes Information not available 04/07/2024 Do You Have Smoke And Carbon Monoxide Detectors In Your Home? Yes Information not available 04/07/2024 How Much Tobacco Do You Smoke? No Information not available 04/07/2024 Do You Feel Stressed (tense, Restless, Nervous, Or Anxious, Or Unable To Sleep At Night)? [id number] Information not available 04/07/2024 Do You Use Any Illicit Or Recreational Drugs? No Information not available 11/07/2021 Do You Use Sunscreen Routinely? Yes Information not available 04/07/2024 Has Tobacco Cessation Counseling Been Provided? No Information not available 11/07/2021 Have You Used IV Drugs? No Information not available 04/07/2024 Do You Or Have You Ever Used Any Other Forms Of Tobacco Or Nicotine? No Information not available 11/07/2021 Sex: Unknown Functional Status Question Answer Note LastModified by Organizat ion Details LastModified Time Do you have difficulty walking or climbing stairs? No [email or web address] Information not available 04/12/2024 Are you able to walk? YESWOREST Information not available 04/07/2024 Are you able to care for yourself? Yes [email or web address] Information not available 04/12/2024 Do you have difficulty dressing or bathing? No [email or web address] Information not available 04/12/2024 What is your exercise level? Occasional Information not available 04/07/2024 Mental Status None recorded. Family History Relationship Description Onset Age of this Age Resolved Age Notes LastModified by Organization Details LastModified Time Mother Heart disease Not available 2023 09:11:56 Mother Osteoporosis Not avail able 04/07/2024 09:11:56 Father Heart disease Not available 2023 09:11:56 Father Malignant tumor of pharynx Not available 2023 14:18:04 Maternal Aunt Diabetes mellitus [email or web address] Not available 2023 10:24:30 Maternal Uncle Diabetes mellitus [email or web address] Not available 2023 10:24:30 Notes:Father: Heart disease, Coronary artery disease, throat ca Maternal aunt: Diabetes mellitus Maternal uncle: Diabetes mellitus Mother: Osteoarthritis, Congestive heart failure, Stroke Medical History Condition Response Allergies (Food, seasonal, environmental ) N Other N Breast Cancer N Drug/Latex Allergies/Reactions N Blood Transfusion N Lung Disease N Dermatologic Disorders N Defects or Inherited Disease N Breast Problem N Gestational Diabetes N Hematologic disorders N Anesthesia Complications N History of STI N Deep Vein Thrombosis N Polycystic ovary syndrome N Anxiety Disorder N Autoimmune disease N Arthritis N Infertility N Polyps N Acid Reflux (GERD) N History of abnormal pap N Cancer N Stroke N Varicosities N Neurologic/Epilepsy N Endometriosis N High Cholesterol Y Headaches N Fibromyalgia N Kidney Disease N Heart Problems N Kidney or Bladder Problems N Thyroid Problems N GI Problems N Eating Disorder N Anemia N Art (IVF or FET) N Psychiatric Illness N Ovarian Cancer N Diabetes N Pulmonary (TB, Asthma) N Hepatitis/Liver Disease N No Past Medical History N Eczema N Urinary Tract Infection N Abuse/Domestic Violence N Asthma N Trauma/Violence N Depression/ depression N Heart Disease N Pre-Eclampsia N Hypertension Y Osteoporosis Y Thrombophilias N Gynecological History Statement/Question Response Abnormal Pap N Date of Last Mammogram 06/15/2023 Date of LMP 09/10/2015 Y STIs/STDs N HPV Vaccine N Colposcopy Current Control Method Menopause If Post Menopausal, Age at Menopause 49 Date of Last Colonoscopy 09/10/2021 Most Recent Bone Density 01/27/2022 Sexually Active? N Age of first menstrual cycle 13 Date of Last Pap Smear 04/07/2024 Sexual Problems? N LMP Unknown 02/08/2018 N Obstetrics History GPAL:G 0 P 0 0 0 0 Type Value Living 0 Total 0 Past Encounters Encounter ID Performer Location Encounter Start Date Encounter Closed Date Diagnosis/Indication Diagnosis SNOMED-CT Code Diagnosis ICD10 Code Diagnosis Note [id number] Lissette Kline MD [facility] [address] [address] 11/07/2021 09:12:37 11/07/2021 13:30:25 Gynecologic examination 37581635 Z01.419 Family his tory of osteoporosis 574296665 Z82.62 [id number] Lissette Kline MD [facility] [address],[place] [address] 03/20/2023 15:36:31 03/21/2023 11:39:39 Gynecologic examination 80222483 Z01.419 Z11.51 Postmenopa usal bleeding 55651460 N95.0 Osteopenia 652007879 M85 .80 [id number] Anastasia Oliva [facility] [address],[place] [address] 04/10/2023 09:45:48 04/10/2023 10:55:24 Postmenopausal bleeding 33888191 N95.0 [id number] Lissette Kline MD [facility] [address],[place] [address] 04/16/2023 16:55:08 04/18/2023 18:06:50 Postmenopausal bleeding 31797342 N95.0 Endometrial polyp 111509 7150 N84.0 Uterus bilocularis 20090 001 Q51.22 [id number] JUAN Yang [facility] [address],[place] [address] 04/07/2024 09:07:21 04/07/2024 13:50:17 Gynecologic examination 83221224 Z01.419 WWEpostmen opausalpap updateddec lined STI screenmamm ogram order given, due 4dex a order givencolon oscopy [facility] labs/PCP Do monthly self breast exams. It is advised to get annual flu shot in the fall and she could obtain at local pharmacy. If you haven't received the Tdap vaccine in the last 10 years you should obtain one as well. Have mammogram yearly, bone density every 2-3 years and stay up to date on colon cancer screening. Engage in regular exercise. Avoid tobacco and illicit drugs. This lifestyle behavior pattern will lead to less health conditions and longer life span. If BMI greater than 25 dietary consult advised. Questions have been answered. Postmenopa usal bleeding 31636845 N95.0 recommende d updated pelvic u/s and consult for continued PMBprecaut ions reviewed Screening for osteoporosis 235679251 Z13.820 Screening for malignant neoplasm of breast 447794512 Z12.39 [id number] Rajani Quinonez [facility] [address] [address] 04/08/2024 09:19:29 04/08/2024 10:07:50 Postmenopausal bleeding 62493121 N95.0 [id number] Jose Daniel Mcghee MD [facility] [address] [address] 04/12/2024 10:23:52 04/14/2024 12:11:21 Endometrial polyp 1479218699 N84.0 59-year-ol d female with postmenopa usal bleeding. She presents for ultrasound follow-up. We reviewed the ultrasound results. She has endometria l and endocervic al polyps. We talked about removal of the endometria l and endocervic al polyps in detail. This will likely cure her bleeding. Talked about the procedure in detail. We agreed to move forward. She understand s the risks, benefits, and alternativ es. spent more than 20 minutes on the patient's care in total. [id number] Jose Daniel Mcghee MD [facility] [address] [address] 06/05/2024 14:17:56 06/05/2024 15:04:22 Endometrial polyp 9448690334 N84.0 this patient presents for postop follow-up. She is 1 week postop from a hysterosco py D&C with polypectom y. She is recovering normally. Her bleeding is minimal. She has no foul-smell ing vaginal discharge. She denies any nausea, vomiting, fever, chills. we discussed biopsy results. We discussed future bleeding. We agreed to follow up as needed on this issue. Health Concerns Section Related Observation LastModified by Organization Detai ls LastModified Time None Recorded Concern Status LastModified by Organization Details LastModified Time None Recorded Advance Directives Directive N: Payers Encounter Date Sequence Insurance Name Policy Number Policy Navarrete Covered Member ID Navarrete Member ID Guarantor Name 04/16/2023 1 [facility] [id number] Jo Lizarraga [id number] 1 Jo Garcia Zia 04/07/2024 1 [facility] [id number] Jo Lizarraga [id number] 1 Jo Garcia Zia 04/08/2024 1 [facility] [id number] Jo Lizarraga [id number] 1 Jo Lizarraga 04/12/2024 1 [facility] [id number] Jo Lizarraga [id number] 1 Jo Lizarraga 06/05/2024 1 [facility] [id number] Jo Lizarraga [id number] Jo Lizarraga Notes Date Note Type Note Provider Name and Address Organization Details Recorded Time 3 text/html G0 here for monthly bleeding since Aug. In 2019 had HSC D and C for stenotic cervix. Us on 04/10 showed EE of 9mm and septate uterus with possible polyp. Here for EMB also. Lissette Kline MD [address], [place], [address], [facility] 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 Post-MenopausalReported bypatient.Menopausal Symptoms:no menopausal symptoms; normal vaginal lubrication Vaginal Bleeding:post menopausal bleeding Urinary Symptoms:no hematuria; no incontinence; no nocturia; no urinary frequency Vulva:no genital lesion; no vulvar atrophy Vagina:normal vaginal discharge; no vaginal atrophy Breast:no breast lump; no nipple discharge; no breast pain Sexual Complaints:no sexual complaints Psychological Symptoms:no depression; no anxiety Preventive Measures:encourage regular mammograms starting age 40; encourage self breast examination; encourage regular exercise; encourage no tobacco useNotes:59yo WWEpostmenopausalh/o EMB 04/2023 for PMB : benign, u/s done at that time showed 9mm endometrium, septate uterus with possible polyp. H/o hysteroscopy and polypectomy in 2019has continued to have bleeding since EMB, about once a month. Light/lasting a few days last pap 10/2021 : nilm, HPV (-)mammogram last exa last 01/2022 - osteopeniacolonoscopy UTD JUAN Yang [address], [place], [address], [facility] 04/07/2024 13:47:48 4 text/html 59-year-old female with postmenopausal bleeding. She presents for ultrasound follow-up. We reviewed the ultrasound results. She has endometrial and endocervical polyps. We talked about removal of the endometrial and endocervical polyps in detail. This will likely cure her bleeding. Talked about the procedure in detail. We agreed to move forward. She understands the risks, benefits, and alternatives. spent more than 20 minutes on the patient's care in total. Jose Daniel Mcghee MD [address], [place], [address], [facility] 05/28/2024 08:14:46 4 text/html this patient presents for postop follow-up. She is 1 week postop from a hysteroscopy D&C with polypectomy. She is recovering normally. Her bleeding is minimal. She has no foul-smelling vaginal discharge. She denies any nausea, vomiting, fever, chills. we discussed biopsy results. We discussed future bleeding. We agreed to follow up as needed on this issue. Jose Daniel Mcghee MD [address], [place], [address], [facility] 06/05/2024 15:01:44 OBGyn Episode No OBEpisode recorded.
--- OUTSIDE RECORDS SUMMARY | 2024-12-26 07:41 | XMS_ITS | Continuity of Care Document ---
Author Organization [employer] Address [address] [place] [address] Phone Care Team Providers Care Social Insurance Specialist Name Role Phone Giovanna New DO Unavailable Unavailable Allergies, Adverse Reactions, Alerts Substance Reaction Status Criticality No Known Allergies Active No Inform ation Medications Medication Instructions Dosage Effective Dates (start - stop) Status Comments HYDROCHLOROTHIAZIDE 25 MG TAB TAKE 1 TABLET BY MOUTH EVERY DAY IN THE MORNING - Active LISINOPRIL 10 MG TABLET TAKE 1 TABLET BY MOUTH EVERY DAY FOR BLOOD PRESSURE - Active ATORVASTATIN 10 MG TABLET TAKE 1 TABLET BY MOUTH EVERY DAY - No Longer Active Procedures Procedure Date Brief Emotional/Behavioral A ssessment, With Scoring/Doct, Per Stndrd Instrument Clin depression screen doc IMMUN ADMIN (INC PERCUTANEOUS) SINGLE, F IRST INJ INFLUENZA VIRUS VACCINE 0.5mL DOSAGE; VT ESERVATIVE FREE, IM USE BASIC METABOLIC PANEL(BMP) CBC, INC PLATELETS, NO DIFFERENTIAL LIPID PANEL VITAMIN D, 25-HYDROXY ROUTINE VENIPUNCTURE PREVENTATIVE-EST: 40-64 BODY MASS INDEX DOCD SYST BP GE 130 - 139MM HG DIAST BP 80-89 MM HG Pt inelig neg scrn depres BASIC METABOLIC PANEL(BMP) CBC, INC PLATELETS, NO DIFFERENTIAL LIPID PANEL ROUTINE VENIPUNCTURE DESTRUCTION PREMALIGNANT LESION (INCL AC TINIC KERATOSES) FIRST LESION DESTRUCTION PREMALIGANT LESION 2-14 (INC L ACTINIC KERATOSES) PREVENTATIVE-EST: 40-64 BODY MASS INDEX DOCD SYST BP LT 130 MM HG DIAST BP 80-89 MM HG OFFICE [id number] BODY MASS INDEX DOCD SYST BP GE 130 - 139MM HG DIAST BP 80-89 MM HG DEPO-MEDROL INJ 40 MG INJ TENDON ORIGIN/INSERTION OFFICE [id number] BODY MASS INDEX DOCD SYST BP LT 130 MM HG DIAST BP < 80 MM HG Pt inelig neg scrn depres BASIC METABOLIC PANEL(BMP) CBC, INC PLATELETS AND DIFFERENTIAL HEMOGLOBIN A1C HGA1C, GLYCO LIPID PANEL ROUTINE VENIPUNCTURE PREVENTATIVE-EST: 40-64 BODY MASS INDEX DOCD SYST BP LT 130 MM HG DIAST BP < 80 MM HG IMMUN ADMIN (INC PERCUTANEOUS) SINGLE, F IRST INJ FLU VAC NO PRSV 4 ODALIS, 0.5mL DOSAGE Pt inelig neg scrn depres BASIC METABOLIC PANEL(BMP) CBC, INC PLATELETS AND DIFFERENTIAL LIPID PANEL ROUTINE VENIPUNCTURE PREVENTATIVE-EST: 40-64 BODY MASS INDEX DOCD SYST BP GE 130 - 139MM HG DIAST BP < 80 MM HG Results Test Name Date and Time Measure Units Reference Range Abnormal Flag Status Comments Panel Description: Lipid Panel Final Cholesterol Jul-2 024 09:01:35 210 mg/dL 0-200 H Final Performed by:TOS-95 (532) HDL,D Jul-2 024 09:01:35 45 mg/dL 40-120 Final Performed by:[facility] (532) Triglycerides Jul-2 09:01:35 121 mg/dL 0-150 Final Performed by:[facility] (532) Chol/HDL Jul-2 024 09:01:35 4.7 Ratio 3.7-6.7 Final Performed by:[facility] (532) LDLC Jul- 09:01:35 141 mg/dL 0-100 H Final Optimal <100Near to above optimal 100 - 129Borderline High 130 -159High 160 - 189Very High > 190Performed by:[facility]OS-95 (532) Panel Description: Basic Metabolic Panel Final Sodium Jul--2 024 09:01:35 139 mmol/L 135-145 Final Performed by:[facility] (532) Potassium Jul-2 024 09:01:35 4.7 mmol/L 3.5-5.3 Final Performed by:[employer]-[facility]ench (532) Chloride Jul-2 024 09:01:35 105 mmol/L 98-107 Final Performed by:[employer]-[facility]ench (532) CO2 Jul-2 024 09:01:35 26 mEq/L 19-30 Final Performed by:[employer]-[facility]ench (532) Glucose Jul--2 024 09:01:35 102 mg/dL 65-99 H Final Performed by:[facility] (532) BUN Jul--2 024 09:01:35 17 mg/dL 9-20 Final Performed by:[facility] (532) Creatinine Jul--2 024 09:01:35 0.65 mg/dL 0.60-1.10 Final Performed by:[employer]-95 (532) BUN/Crea Jul-25-2 024 09:01:35 26 Ratio 6-25 H Final Performed by:[facility] (532) Calcium Jul--2 024 09:01:35 9.8 mg/dL 8.6-10.4 Final Performed by:[facility] (532) Anion Gap Jul-25-2 024 09:01:35 13 meq/L 0-17 Final Performed by:[facility] (532) eGFR Jul-25-2 024 09:01:35 >90 mL/min/1 .73m2 >90 Final CKD-EPI Equation (2020)Performed by:[facility] (532) Panel Description: CBC - No Diff Final WBC Jul-25-2 024 09:01:35 6.19 K/uL 3.80-10.80 Final Performed by:[facility] (532) RBC Jul-25-2 024 09:01:35 4.50 M/uL 3.80-5.10 Final Performed by:[facility] (532) HGB Jul-25-2 024 09:01:35 13.7 g/dL 11.7-15.5 Final Performed by:[facility] (532) HCT Jul-25-2 024 09:01:35 44.3 % 35.0-45.0 Final Performed by:[facility] (532) MCV Jul-25-2 024 09:01:35 98.4 fL 80.0-100.0 Final Performed by:[facility] (532) MCH Nov-25-2 024 09:01:35 30.4 pg 27.0-33.0 Final Performed by:[facility] (532) MCHC Nov-25-2 024 09:01:35 30.9 g/dL 32.0-36.0 L Final Performed by:[facility] (532) RDW Jul-25-2 024 09:01:35 13.0 % 11.0-15.0 Final Performed by:[facility] (532) PLT Jul-25-2 024 09:01:35 328 K/uL 150-400 Final Performed by:[facility]OS-95 (532) MPV Nov-25-2 024 09:01:35 9.9 fL 6.0-12.0 Final Performed by:TOS-95 (532) Panel Description: 25-hydrox yvitamin D3 [Mass/volume] in Serum or Plasma Final Vit D, 25-OH Nov-25-2 024 09:01:35 19 ng/mL 30-100 L Final Results may underestimate 25-OH Vitamin D inpatients receiving Vitamin D2 therapy.It is recommended to monitor patients onVitamin D2 therapy with LC/MS methodolgy(Refe rence lab).Performed by:[facility]-95 (532) Advance Directives Directive Yes / No Effective Date File Name Other Directive No N/A N/A WARNING:The information contained in this section is historical and is provided for information only and does not constitute a legal document or any assurance that the information is still accurate. Please verify the information with the reyes of the legal document before using it for clinical purposes. Encounters Encounter Description Practice Location Reason(s) For Visit Diagnoses Date Provider Providers Copied on Encounter PREVENTATIVE -EST: [facility], [address], [place], [place], [address] , tel:[phone] [facility] Chronic Conditions (chief complaint)P E (chief complaint)c hronic conditions (chief complaint) Essential (primary) hypertensionMixed hyperlipidemiaAdu lt general medical examDysfunctional uterine bleedingBody mass index [BMI] 34.0-34.9, adult 4 [address], [address], [address], . tel:[phone] Referring Provider: Giovanna North, [address], [address] . tel:[phone] [facility], [address], [place], [place], [address] , [phone] [facility] Internal Medicine No Information [address], [address], [address], . tel:[phone] [facility], [address], [place], [place], [address] , tel:[phone] [facility] No Information [address], [address], [address], . tel:[phone] PREVENTATIVE -EST: [facility], [address], [place], [place], [address] , tel:[phone] [facility] Chronic Conditions (chief complaint) Adult general medical examEssential (primary) hypertensionMixed hyperlipidemiaAct inic keratosisBody mass index [BMI] 33.0-33.9, adult Sep-2 [address], [address], [place], [place], [address], [place]. tel:[phone] Referring Provider: [address], [place], [address] . tel:[phone] OFFICE [id number] [facility], [address], [place], [place], [address] , tel: [phone] [facility] Leg soreTrigger thumb, right thumb 2 Can [address], [address], [place], [place], [address], [place]. tel:[phone] Referring Provider: [address], [place], [address] . tel:[phone] OFFICE LKMPA-YKL-SM [facility], [address], [place], [place], [address] , tel: [phone] [facility] Body mass index [BMI] 35.0-35.9, adultLeg soreTrigger thumb, right thumb [address], [address], [place], [place], [address], [place]. tel:[phone] Referring Provider: [address], [place], [address] . tel:[phone] PREVENTATIVE -EST: 40-64 [facility], [address], [place], [place], [address] , tel: [phone] [facility] Visit for preventive health examinationEssent ial (primary) hypertensionHyper lipidemia, unspecifiedOther obesity due to excess caloriesDiabetes mellitus screeningSpider varicose veins [address], [address], [place], [place], [address], [place]. tel:[phone] Referring Provider: [address], [place], [address] . tel:[phone] PREVENTATIVE -EST: 40-64 [facility], [address], [place], [place], [address] , tel: [phone] [facility] Body mass index (BMI) 33.0-33.9, adultVisit for preventive health examinationEssent ial (primary) hypertensionHyper lipidemia, unspecifiedOther obesity due to excess caloriesEncounter for screening for osteoporosisEncnt r screen mammogram for malignant neoplasm of breast 0 [address], [address], [place], [place], [address], . tel:[phone] Referring Provider: [address], [place], [address] . tel:[phone] [facility] [address], [place], [place], [address] , tel: [phone] [facility] preventive exam (chief complaint) Essential (primary) hypertensionOther obesity due to excess caloriesHyperlipi demia, unspecified [address], [address], [place], [place], [address], . tel:[phone] Referring Provider: [address], [place], [address] . tel:[phone] [facility] [address], [place], [place], [address] , tel:[phone] [facility] Visit for preventive health examinationOther obesity due to excess caloriesEssential (primary) hypertensionFamil y illness [address], [address], [place], [place], [address], . tel:[phone] Referring Provider: [address], [place], [address] . tel:[phone] [facility], [address], [place], [place], [address] , tel: [phone] [facility] Essential (primary) hypertensionUpper respiratory infection, acute 7 Perez [address], [place], [place], [address], . tel:[phone] Referring Provider: [address], [place], [address] . tel:[phone] [facility], [address], [place], [place], [address] , tel: [phone] [facility] Essential (primary) hypertensionOther obesity due to excess caloriesOther viral warts [address], [address], [place], [place], [address], . tel:[phone] Referring Provider: [address] [place] [address], [address] . tel:[phone] [facility], [address], [place], [place], [address] , tel: [phone] [facility] Contact dermatitis 5 Austin Arthur. [address] [place] [address], [address]. tel:[phone] Referring Provider: [address] [place] [address], [address] . tel:[phone] [facility], [address], [place], [place], [address] , tel: [phone] [facility] Contact dermatitis 4 Austin Arthur. [address] [place] [address], [address]. tel:[phone] Referring Provider: [address] [place] [address], [address] . tel:[phone] [facility], [address], [place], [place], [address] , tel: [phone] [facility] Influenza AHTN [address], [address], [address], . tel:[phone] Referring Provider: [address] [facility], [place], [address] . tel:[phone] [facility], [address], [place], [place], [address] , tel: [phone] [facility] HTNInfluenza A 4 Austin Arthur. [facility]5 [facility], [facility] [address], [place], [address]. tel:[phone] Referring Provider: [address] [place] [address], [address] . tel:[phone] [facility], [address], [place], [place], [address] , tel: [phone] [facility] HYPERTENSION NOSObesityOtitis externa 3 [address], [address], [address], . tel:[phone] Referring Provider: [address] [place] [address], [address] . tel:[phone] [facility], [address], [place], [place], [address] , tel: [phone] [facility] HYPERTENSION NOSObesity, unspecifiedCarpal tunnel syndrome [address], [address] [place] [address], [address], . tel:[phone] Referring Provider: [address] [place] [address], [address] . tel:[phone] [facility], [address], [place], [place], [address] , tel: [phone] [facility] Unspecified essential hypertensionOther and unspecified hyperlipidemiaObe sity, unspecified [address], [address], [place], [place], [address], . tel:[phone] Referring Provider: [address], [place], [address] . tel:[phone] [facility], [address], [place], [place], [address] , tel: [phone] [facility] Unspecified essential hypertensionOther and unspecified hyperlipidemiaCar pal tunnel syndrome on left 2 [address], [address], [place], [place], [address], . tel:[phone] Referring Provider: [address] [facility], [place], [address] . tel:[phone] [facility], [address], [place], [place], [address] , tel: [phone] [facility] Poison jesu 2 Scaglione Tammy. [address], [place], [place], [address]. tel:[phone] Referring Provider: [address], [place], [address] . tel:[phone] [facility], [address], [place], [place], [address] , tel: [phone] [facility] Unspecified essential hypertensionObesi ty, unspecified [address], [address], [place], [place], [address], . tel:[phone] Referring Provider: [address] [facility], [place], [address] . tel:[phone] [facility], [address], [place], [place], [address] , tel: [phone] [facility] SYNOVITIS NECJOINT PAIN-L/LEGHYPERTE NSION NOSSCREEN LIPOID DISORDERS 0-201 [address], [address], [place], [place], [address], [place]. tel:[phone] [facility], [address], [place], [place], [address] , tel: [phone] [facility] HYPERLIPIDEMIA NEC/NOSOBESITY NOS 3201 [address], [address], [place], [place], [address], [place]. tel:[phone] [facility], [address], [place], [place], [address] , [place] tel: [phone] [facility] SPRAIN SHOULDER/ARM NECLONG-TERM USE MEDS NEC 8-201 [address], [address], [place], [place], [address], [place]. tel:[phone] [facility], [address], [place], [place], [address] , [place] tel: [phone] [facility] CRAMP IN LIMBBENIGN HYPERTENSION 3-[address], [address], [place], [place], [address], [place]. tel:[phone] [facility], [address], [place], [place], [address] , [place] tel: [phone] [facility] ACUTE URI NOS 7-200 [address], [address], [place], [place], [address], [place]. tel:[phone] [facility], [address], [place], [place], [address] , [place] tel: [phone] [facility] ACUTE PHARYNGITIS 0-200 [address], [address], [place], [place], [address], [place]. tel:[phone] [facility], [address], [place], [place], [address] , [place] tel: [phone] [facility] ALLERGIC RHINITIS NOS 8-200 4 Cna [address]. [address], [address], [place], [place], [address], [place]. tel:[phone] [facility], [address], [place], [place], [address] , [place] tel: [phone] [facility] OTH SPECFD VIRAL WARTS 2-200 3 Delfino Fish. [address], [place], [place], [address], [place]. tel:[phone] [facility], [address], [place], [place], [address] , [place] tel: [phone] [facility] VIRAL WARTS NOS 1-200 2 [address], [address], [place], [place], [address], [place]. tel:[phone] [facility], [address], [place], [place], [address] , tel: [phone] [facility] SYNOV/TEND/BURSA DIS NEC 9-200 1 [address]. [address], [address], [place], [place], [address], [place]. tel:[phone] [facility], [address], [place], [place], [address] , [place] tel: [phone] [facility] SEBACEOUS CYST 0-199 [address], [address], [place], [place], [address], [place]. tel:[phone] Family History Family Member Type Diagnosis Age At Onset No Information Immunizations Vaccine Date Status Comments Fluzone Trivalent, preservative free, split virus, 0.5mL dosage administered Source: New Immuniza tion Record Moderna (Low Dose) COVID19 Vaccine, 0.25mL per dose, booster dose administered Source: Other Regist elena Fluzone Quad, preservative free, split virus, 0.5mL dosage administered Note: thru Employer ; Source: Other Provider J&J COVID/Adenovirus Vaccine [id number] viral particles/0.5mL Mar-09-2021 administered Source: [facility] [facility] Fluzone Quad, preservative free, split virus, 0.5mL dosage administered Note: FLU vaccine gi pam, RA ; Source: New Immunization Record Tdap administered Source: New Imm unization Record 55631 - TD administered Source: Source Unspecified Payers Payer name Insurance type Covered libertarian ID Authoriza tion(s) [employer] OPEN ACCESS CI [id number] [employer] OPEN ACCESS CI [id number] [facility] CI [id number] [facility] CI [id number] Social History Type Description Quantity Date Captured Comments Alcohol Use Details Unknown Caffeine Use Details Unknown Tobacco Use Status Current non-smoker Smoking Status Never smoker Non-Smoking Tobacco Use Details : No Details Available : No Details Available Sex Female Vital Signs Date / Time: Height Weight BMI Pulse Rate Blood Pressure Temperature Respiratory Rate Body Surface Area Head Circumference Head Circ. Percentile Wt./Gaetano. Percentile BMI percentile Pulse Ox Inhaled Ox 8:39 AM 63.50 in 90.873 kg (200.34 lbs) 34.9 3 kg/m eter (2) 72 /min 136/82 mm[Hg] 96.50 F 96 % Chief Complaint And Reason For Visit From encounter dated '08/04/2024 08:30'. Chronic Conditions (chief complaint). Description: *See Chronic Conditions HPI PE (chief complaint). Description: Chief ComplaintJoint pain, particularly in the hips and knees, persisting after discontinuation of long-term medication.History Of Present Illness- Jo Lizarraga, 59 years old- Stopped medication approximately 6 months ago after being on it for 5 years- Experienced soreness in joints and whole body while on medication- Current symptoms include hip and knee pain,with the hip being the most bothersome- Elbow pain has resolved since stopping medication- Scheduled for a bone density test in December 2024- Had a hysteroscopy in November or January 2024 due to polyps and breakthrough bleeding- Postmenopausal bleeding noted- Experiencing stress due to adopting a second puppy after a friend's passing in June 2024 chronic conditions (chief complaint). Description: *See Chronic Conditions HPI Reason For Referral Reason For Referral No Information Plan Of Treatment Date Type Action Status Goal Dietary manageme nt education, guidance, and counseling completed Goal Dietary manageme nt education, guidance, and counseling completed Goal Dietary manageme nt education, guidance, and counseling completed Goal Dietary manageme nt education, guidance, and counseling completed Referral Ordered: SCREENING MAMMOGRAM (CAD) Bilateral breast ordered Appointment Jo Lizarraga BOOKED Future Order: Radiology Order SC REENING MAMMOGRAM (CAD) Bilateral breast (30813), Body Site: breast, Sent on: Sent History Of Present Illness Encounter Date Complaint History Of Prese nt Illness chronic conditions *See Chronic Conditions HPI Chronic Conditions *See Chronic Conditions HPI PE Chief ComplaintJ oint pain, particularly in the hips and knees, persisting after discontinuation of long-term medication.History Of Present Illness- Jo Lizarraga, 59 years old- Stopped medication approximately 6 months ago after being on it for 5 years- Experienced soreness in joints and whole body while on medication- Current symptoms include hip and knee pain, with the hip being the most bothersome- Elbow pain has resolved since stopping medication- Scheduled for a bone density test in December 2024- Had a hysteroscopy in November or January 2024 due to polyps and breakthrough bleeding- Postmenopausal bleeding noted- Experiencing stress due to adopting a second puppy after a friend's passing in June 2024 Chronic Conditions *See Chronic Conditions HPI preventive exam Functional Status Date Functional Assessmen t No Information Instructions Date Instruction Additional Infor matglenys Patient had D&C mason ier this year due to endometrial polypsPAtient states she is feeling well, no more bleeding episodesFollows with Dr Dowling Related to Dysfunctional uterine bleeding Patient is in good h ealth overallShe is active - now has 2 puppies- Bone density test scheduled for December 2024 in [place], [place].- Ultrasound and diagnostic mammogram rescheduled for August 13, 2024.- Software Configuration Specialist appointment planned, no specific date mentioned.- Due for labs Related to Adult general medical exam Patient stopped taki ng statin due to joint pain in elbows, hips and knees. Pain has improved significanlty since stopping medicationmonitor cholesterol off of stainmonitor Related to Mixed hyperlipidemia Continue current man agement, encourage exercise as tolerated. Compliant with medications, no side effectsCheck CBC and BMP Related to Essential (primary) hypertension Dietary management e ducation, guidance, and counseling Related to Body mass index (BMI) 34.0-34.9, adult Giving encouragement to exercise Related to Body mass index (BMI) 34.0-34.9, adult Patient is in great health overall. She is very active. She is also working hard on diet and weight loss up-to-date on PapPatient is scheduled for mammogram in GxpadgzAp-ko-zsqu on immunizations due for labs Related to Adult general medical exam patient had 1 AK on each hand-also 1 on left leg. Destroyed with liquid nitrogen in office, patient tolerated well Related to Actinic keratosis Continue current man agement, encourage exercise as tolerated. Compliant with medications, no side effectsCheck CBC and BMP Related to Essential (primary) hypertension Encourage exercise a s tolerated, dietary recommendations, weight loss. Continue statin.Check lipid panel Related to Mixed hyperlipidemia Disease process Dietary management e ducation, guidance, and counseling Related to Body mass index (BMI) 33.0-33.9, adult Giving encouragement to exercise Related to Body mass index (BMI) 33.0-33.9, adult f/u for sore on back of R calfsmaller than 2 weeks ago.has scab on itP no need for neosporinf/u 4 weeks if still present. Related to Leg sore thumb is better sinc e injectionP monitor. Related to Trigger thumb, right thumb for 5 weeks she has had a sore on back of her L calfshe thinks it may have started as an ingrown hair, aggravated by shavingP scab removed liq N2 applieduse polysporinf/u 2 wks. Related to Leg sore R thumb has been tri ggering for 2-3 weeksP kenalog 10 mg injected. Related to Trigger thumb, right thumb Dietary management e ducation, guidance, and counseling Related to Body mass index (BMI) 35.0-35.9, adult Giving encouragement to exercise Related to Body mass index (BMI) 35.0-35.9, adult has a couple spider veins behind R knee that ache at timesP monitor. Related to Spider varicose veins bmi up to 33P work on portion co ntrol. Related to Other obesity due to excess calories Hyperlipidemia. On s tatin. No myalgias or nausea.P check lipids continue medication and dietary guidelines. Related to Hyperlipidemia, unspecified Hypertension. No med ication side effects. No chest pain or sob.O; lungs--clear, no rales or wheezes. heart--regular rate and rhythm, no murmurs, clicks, or rubs. neck--no bruits extremities--no edema, good pulses in feet.A: good BP controlp continue current meds. check BMP Related to Essential (primary) hypertension very good general he alth.spends a lot of time caring for her schizophrenic brother.p work on some weight loss Related to Visit for preventive health examination Hyperlipidemia. On s tatin. No myalgias or nausea.P check lipids continue medication and dietary guidelines. Related to Hyperlipidemia, unspecified bmi 33P work on portion control. Related to Other obesity due to excess calories Hypertension. No med ication side effects. No chest pain or sob.O; lungs--clear, no rales or wheezes. heart--regular rate and rhythm, no murmurs, clicks, or rubs. neck--no bruits extremities--no edema, good pulses in feet.A: good BP controlp continue current meds. check BMP Related to Essential (primary) hypertension very good general he alth.P work on portion control schedule mammogram and BMD Related to Visit for preventive health examination Exercise promotion: stretching R elated to Body mass index (BMI) 33.0-33.9, adult Dietary management e ducation, guidance, and counseling Related to Body mass index (BMI) 33.0-33.9, adult bmi is 34P work on portion contr ol. Related to Other obesity due to excess calories Hyperlipidemia. On s tatin. No myalgias or nausea.P check lipids continue medication and dietary guidelines. Related to Hyperlipidemia, unspecified Hypertension. No med ication side effects. No chest pain or sob.O; lungs--clear, no rales or wheezes. heart--regular rate and rhythm, no murmurs, clicks, or rubs. neck--no bruits extremities--no edema, good pulses in feet.A: good BP controlp continue current meds. check BMP Related to Essential (primary) hypertension Assessments Type Assessment Date assessment Essential (primary) hypertension assessment Mixed hyperlipidemia assessment Adult general medical exam assessment Dysfunctional uterine bleeding N assessment Body mass index [BMI] 34.0-34.9, adult Mental Status Date Cognitive Assessment Orientation - [place] ed to time, place, person, situation. Patient Care Teams Name Effective Dates (start - stop) Status Members No Information
== END 2024-12-26 07:22 | disposition home or self-care (01) ==
LOC: ANHIMG 07:35
PROVIDERS: Visit Provider Nurse Practitioner
DX: Z13.820 Encounter for screening for osteoporosis (principal); Z78.0 Asymptomatic menopausal state
CPT/HCPCS: 77080

== ENCOUNTER 2025-06-22 15:34 | Outpatient (CLI) | payer OTHER, SELFPAY ==
--- NOTE | ~2025-06-22 | MM_ITS ---
EXAMINATION: MM screening shelly BI w lev HISTORY: Screening TECHNIQUE: Craniocaudal and mediolateral oblique 3-D tomosynthesis images were obtained and synthetic 2-D images were generated. CAD analysis was submitted and interpreted. COMPARISON: 06/15/2023 BREAST PARENCHYMAL COMPOSITION: The breasts are extremely dense, which lowers the sensitivity of mammography. FINDINGS: There is no evidence of suspicious mass, calcification, or architectural distortion to suggest malignancy. There has been no suspicious interval change. IMPRESSION: 1. No mammographic evidence of malignancy. Recommend routine screening mammography in one year. BI-RADS Category 2: Benign finding(s) Reviewed, dictated and finalized at location Q. IMPRESSION: 1. No mammographic evidence of malignancy. Recommend routine screening mammogra phy in one year. BI-RADS Category 2: Benign finding(s)
== END 2025-06-22 15:35 | disposition home or self-care (01) ==
LOC: MICIMG 15:35
PROVIDERS: Visit Provider Nurse Practitioner
DX: Z12.31 Encounter for screening mammogram for malignant neoplasm of breast (principal)
CPT/HCPCS: 77063; 77067